=== PATIENT | female | born 1955 | race Caucasian/White ===

== ENCOUNTER → 2017-04-12 | Outpatient (CLI) | payer OTHER | LOC: BMCIMAGING 08:24 | PROVIDERS: ATTEND Internal Medicine | DX: Z12.31 Encounter for screening mammogram for malignant neoplasm of breast (principal) | CPT/HCPCS: G0202 ==

== ENCOUNTER 2017-07-20 08:32 | Emergency (ER) | payer OTHER ==
--- NOTE | 2017-07-20 09:19 | EDPHY ---
General Time Seen by Provider: 07/20/17 09:11 Narrative: CHIEF COMPLAINT: Flank pain,"possible kidney infection" HISTORY OF PRESENT ILLNESS: Patient complains of bilateral flank pain. Pain originally started . It is mild to moderate pain. It waxes and wanes. Typically much worse at night. Associated with some nausea vomiting. Was associated with chills and subjective fever. No fever today. The worst component of this is that she says she falls asleep at night but then awakes 2-3 hours later and cannot go back to sleep. It also radiates to the left shoulder. She has no chest pain. No shortness of breath. She does have urinary frequency but minimally changed from baseline. No dysuria. No microscopic hematuria. Blood sugars have also been elevated. They have been running in the 300s as high as 384. She does have an insulin pump. She contacted her primary care physician who sent her to urgent care. Urgent care center to ask for higher level of care per REVIEW OF SYSTEMS: Ten systems reviewed and are negative unless otherwise noted in the HPI PCP: Dr. Jessica Santo SPECIALISTS: Dr. Galan, endocrine PAST MEDICAL HISTORY: Insulin-dependent diabetic, osteoarthritis PAST SURGICAL HISTORY: Micro diskectomy 2016 SOCIAL HISTORY: Nonsmoker. No alcohol or drug use. Works in [employer] here in [place]. Lives independently with her spouse FAMILY HISTORY: Noncontributory EXAMINATION General Appearance: Alert, no distress Head: normocephalic, atraumatic Eyes: Pupils equal and round, no conjunctival pallor or injection ENT, Mouth: Mucous membranes moist Neck: Normal inspection, supple, non-tender Respiratory: Lungs are clear to auscultation. No wheezing, rhonchi or crackles Cardiovascular: Regular rate and rhythm. No murmur Gastrointestinal: Abdomen is soft and nontender. Nondistended. No tympany rigidity. No guarding. No CVA tenderness Back: non-tender, no bony abnormalities Neurological: A&O, nonfocal, normal gait Skin: Warm and dry, no rash. No petechiae or purpura Extremities: Nontender, no pedal edema Psychiatric: Mood and affect normal DIFFERENTIAL DIAGNOSES: Including but not limited to renal colic, pyelonephritis, urinary tract infection, dehydration, DKA, musculoskeletal pains MDM: 9:20 a.m. Bilateral flank pain with urinary frequency but no dysuria. Urinalysis shows mildly positive leukocyte esterase, 3-5 white blood cells and positive ketonuria. Vital signs were well within normal limits. She is in no acute distress. She does have mild CVA tenderness. Her abdominal exam is benign. She is afebrile here. She does report blood sugars that have been the 300s to 390 at home. She is an insulin-dependent diabetic. I have ordered laboratory studies, venous blood gas, beta hydroxybutyrate. I will discuss with Dr. Leyva regarding ultrasound of the kidneys versus CT scan. 10:10 a.m. Patient re-evaluated. Laboratory studies suggest mild urinary tract infection. Glucose is 240. No evidence of DKA by laboratory studies. I have discussed with Dr. Leyva. Proceeding with CT scan of the abdomen and pelvis to further evaluate for the flank pain. I have discussed with the patient she agrees. I have ordered IV Rocephin for the possibility of infection and IV fluid due to the IV contrast. 11:00 a.m. Patient resting comfortably. Awaiting CT scan. 11:35 a.m. Notified by radiologist Dr. Starkey. No acute findings on the CT scan of the abdomen pelvis that would explain the patient's pain. Mild changes as noted in the report. 11:50 a.m. I discussed case with Dr. Leyva. I have also re-evaluated the patient. We are in agreement that the patient likely has an early pyelonephritis. She remains awake alert no acute distress. Vital signs are stable. She has no complaints of lower extremity weakness or sensory changes. The moderate to significant spinal stenosis is not new for her. I did discuss the incidental note of diverticulosis. I do feel she is stable for discharge home with antibiotic therapy. I have ordered a urine culture. I discussed follow-up with primary care physician in 1-2 days. I discussed ED precautions. She is comfortable this plan and discharged home stable condition. SUPERVISION: Patient was independently examined, but I discussed the case with my secondary supervising physician Dr. Leyva - Diagnostics Imaging Results: Imaging Impressions Abdomen CT 07/20/17 10:04 Impression: 1. No significant abnormality within the abdomen and pelvis. 2. Uncomplicated diverticulosis of the sigmoid colon. 3. Degenerative disk disease with mild dextroscoliosis mid to lower lumbar spine with underlying neuroforaminal stenosis bilaterally and moderate to severe spinal stenosis at L5 dish S1. 4. Mild constipation. Findings discussed with Guillermo Ba PAC at 11:34 hour, 07/20/2017. - History Smoking Status: Former smoker - Objective Vital Signs: Initial Vital Signs Temperature (C) 96.8 F 07/20/17 08:33 Heart Rate 84 07/20/17 08:33 Respiratory Rate 18 07/20/17 08:33 Blood Pressure 136/96 H 07/20/17 08:33 O2 Sat (%) 96 07/20/17 08:33 O2 Delivery Mode Room Air Allergies/Adverse Reactions: cortisone [Cortisone] Allergy (Mild, Verified 07/20/17 08:33) BLISTERING, RED, SWELLING Home Medications: Medication Instructions Recorded Cephalexin [Keflex (*)] 500 mg PO QID #40 cap 07/20/17 Insulin Aspart [novoLOG] unit SC AC 07/20/17 oxyCODONE HCL/ACETAMINOPHEN 1 each PO Q4-6PRN PRN #13 tablet 07/20/17 [Percocet 5-325 mg Tablet] Laboratory Results: Laboratory Results 07/20/17 09:22 07/20/17 09:22 07/20/17 07/20/17 07/20/17 09:22 09:22 09:22 WBC 6.98 10^3/uL 10^3/uL (3.80-9.50) RBC 5.33 10^6/uL 10^6/uL (4.18-5.33) Hgb 16.3 g/dL g/dL (12.6-16.3) Hct 46.3 % % (38.0-47.0) MCV 86.9 fL fL (81.5-99.8) MCH 30.6 pg pg (27.9-34.1) MCHC 35.2 g/dL g/dL (32.4-36.7) RDW 12.0 % % (11.5-15.2) Plt Count 241 10^3/uL 10^3/uL (150-400) MPV 9.7 fL fL (8.7-11.7) Neut % (Auto) 63.0 % % (39.3-74.2) Lymph % (Auto) 20.9 % % (15.0-45.0) [place] % (Auto) 7.2 % % (4.5-13.0) Eos % (Auto) 7.7 % H % (0.6-7.6) Baso % (Auto) 1.1 % % (0.3-1.7) Nucleat RBC Rel Count 0.0 % % (0.0-0.2) Absolute Neuts (auto) 4.39 10^3/uL 10^3/uL (1.70-6.50) Absolute Lymphs (auto) 1.46 10^3/uL 10^3/uL (1.00-3.00) Absolute Monos (auto) 0.50 10^3/uL 10^3/uL (0.30-0.80) Absolute Eos (auto) 0.54 10^3/uL H 10^3/uL (0.03-0.40) Absolute Basos (auto) 0.08 10^3/uL 10^3/uL (0.02-0.10) Absolute Nucleated RBC 0.00 10^3/uL 10^3/uL (0-0.01) Immature Gran % 0.1 % % (0.0-1.1) Immature Gran # 0.01 10^3/uL 10^3/uL (0.00-0.10) Puncture Site VENOUS Patient Temperature 37.0 DEGREES DEGREES VBG pH 7.41 (7.31-7.42) VBG HCO3 27 mEQ/L H mEQ/L (22-26) VBG Total CO2 28 mEq/L H mEq/L (23-27) VBG O2 Saturation 70 % % (65-75) VBG Base Excess 2.2 mEq/L mEq/L (-2.5-2.5) Mixed VBG pCO2 44 mmHg mmHg (40-44) Mixed VBG pO2 39 mmHg mmHg (35-40) Sodium 140 mEq/L mEq/L (135-145) Potassium 4.2 mEq/L mEq/L (3.5-5.2) Chloride 101 mEq/L mEq/L (97-110) Carbon Dioxide 25 mEq/l mEq/l (22-31) Anion Gap 14 mEq/L mEq/L (8-16) BUN 16 mg/dL mg/dL (7-23) Creatinine 0.8 mg/dL mg/dL (0.6-1.0) Estimated GFR > 60 Glucose 240 mg/dL H mg/dL (70-100) Calcium 11.4 mg/dL H mg/dL (8.5-10.4) Phosphorus 2.7 mg/dL mg/dL (2.5-4.5) Lipase 47 IU/L IU/L (23-300) Beta-Hydroxybutyrate 0.09 mmol/L mmol/L (0.02-0.27) Urine Color Urine Appearance Urine pH Ur Specific [place] Urine Protein Urine Ketones Urine Blood Urine Nitrate Urine Bilirubin Urine Urobilinogen Ur Leukocyte Esterase Urine RBC Urine WBC Ur Epithelial Cells Urine Glucose 07/20/17 08:40 WBC RBC Hgb Hct MCV MCH MCHC RDW Plt Count MPV Neut % (Auto) Lymph % (Auto) [place] % (Auto) Eos % (Auto) Baso % (Auto) Nucleat RBC Rel Count Absolute Neuts (auto) Absolute Lymphs (auto) Absolute Monos (auto) Absolute Eos (auto) Absolute Basos (auto) Absolute Nucleated RBC Immature Gran % Immature Gran # Puncture Site Patient Temperature VBG pH VBG HCO3 VBG Total CO2 VBG O2 Saturation VBG Base Excess Mixed VBG pCO2 Mixed VBG pO2 Sodium Potassium Chloride Carbon Dioxide Anion Gap BUN Creatinine Estimated GFR Glucose Calcium Phosphorus Lipase Beta-Hydroxybutyrate Urine Color YELLOW Urine Appearance HAZY Urine pH 5.0 (5.0-7.5) Ur Specific [place] 1.021 (1.002-1.030) Urine Protein NEGATIVE (NEGATIVE) Urine Ketones NEGATIVE (NEGATIVE) Urine Blood NEGATIVE (NEGATIVE) Urine Nitrate NEGATIVE (NEGATIVE) Urine Bilirubin NEGATIVE (NEGATIVE) Urine Urobilinogen NEGATIVE EU EU (0.2-1.0) Ur Leukocyte Esterase TRACE H (NEGATIVE) Urine RBC 1-3 /hpf /hpf (0-3) Urine WBC 3-5 /hpf H /hpf (0-3) Ur Epithelial Cells TRACE /lpf /lpf (NONE-1+) Urine Glucose 3+ H (NEGATIVE) Medications Given: Discontinued Medications Ceftriaxone Sodium/Dextrose (Rocephin 1 Gm (Premix)) 50 mls @ 100 mls/hr IV EDNOW ONE PRN Reason: Protocol Stop: 07/20/17 10:39 Last Admin: 07/20/17 10:48 Dose: 50 mls Sodium Chloride (Ns) 1,000 mls @ 0 mls/hr IV EDNOW ONE; Wide Open PRN Reason: Protocol Stop: 07/20/17 10:12 Last Admin: 07/20/17 10:47 Dose: 1,000 mls Departure - Departure Disposition: Home, Routine, Self-Care Clinical Impression: Pyelonephritis, Flank pain Diverticulosis Qualifiers: Diverticulosis site: unspecified location Diverticulosis bleeding: diverticulosis without bleeding Qualified Code(s): K57.90 - Diverticulosis of intestine, part unspecified, without perforation or abscess without bleeding Condition: Good Instructions: Urinary Tract Infection in Women (ED), Kidney Infection (ED), Flank Pain (ED) Additional Instructions: 1. Antibiotics as prescribed to completion 2. Contact her primary care physician to be seen 1-2 days 3. Pain medication as prescribed as needed 4. ED precautions as discussed Referrals: Jessica Santo MD [Primary Care Provider] - As per Instructions Prescriptions: Cephalexin [Keflex (*)] 500 mg PO QID #40 cap oxyCODONE HCL/ACETAMINOPHEN [Percocet 5-325 mg Tablet] 1 each PO Q4-6PRN PRN # 13 tablet PRN Reason: Pain, Breakthrough
[2017-07-20 09:59] LABS: PLATELET COUNT 241 10^3/uL (150-400)
[2017-07-20] MEDS ORDERED: IOPAMIDOL (ISOVUE-300) 100 ML BTL ONE (10:09)
[2017-07-20] MEDS ORDERED: NS 1,000 ML IV ONE (10:11)
--- NOTE | 2017-07-20 11:51 | CPEKG ---
Heart Rate: 69 RR Interval: 870 P-R Interval: 148 QRSD Interval: 82 QT Interval: 376 QTC Interval: 403 P Tillman: 83 QRS Tillman: 38 T Wave Tillman: 39 EKG Severity - NORMAL ECG - EKG Impression: SINUS RHYTHM Electronically Signed By: Ulysses Leyva 20-Jul-2017 14:58:58
[2017-07-20 12:20] VITALS: BP 144/93; PULSE 74; RESP 16; TEMP 98.1; O2SAT 98
== END 2017-07-20 12:18 | disposition home or self-care (01) ==
DX: K57.90 Diverticulosis of intestine, part unspecified, without perforation or abscess without bleeding (principal); N12 Tubulo-interstitial nephritis, not specified as acute or chronic; E86.9 Volume depletion, unspecified; E11.9 Type 2 diabetes mellitus without complications; Z87.891 Personal history of nicotine dependence
CPT/HCPCS: 96374; J0696; Q9967

== ENCOUNTER → 2017-08-09 | Outpatient (CLI) | payer OTHER | LOC: FIMAGING 10:15 | PROVIDERS: ATTEND Internal Medicine Endocrinology, Diabetes & Metabolism | DX: Z13.820 Encounter for screening for osteoporosis (principal); M85.89 Other specified disorders of bone density and structure, multiple sites; Z78.0 Asymptomatic menopausal state ==

== ENCOUNTER 2018-02-20 08:34 | Inpatient (IN) | payer OTHER ==
--- NOTE | 2018-02-20 08:49 | EDPHY ---
HPI/HX/ROS/PE/MDM Narrative: CHIEF COMPLAINT: Abscess HISTORY OF PRESENT ILLNESS: This patient is a 62-year-old female with history of insulin dependent diabetes. She has had an insulin pump in place for the past four years and has had an adverse skin reaction to plastic cannulas in the past, so switched to metal about one month ago. She has had small abscesses which have not required antibiotic treatment. On Tuesday, two days ago, she noted her BGL was high, around 600. She noted some erythema around her pump side to the left of her umbilicus, and moved the site to the right. She denies noting any purulence when she removed the needle. This morning, she noted a larger area of erythema with a central area of induration. She feels febrile and endorses chills and diaphoresis. She endorses associated nausea. She states her blood glucose levels have been normal since changing her pump site. She denies history of hypertension, pulmonary issues, cardiac issues. No chest pain, shortness of breath, palpitations, vomiting, diarrhea, urinary complaints, headache, lightheadedness. REVIEW OF SYSTEMS: A comprehensive 10 system review of systems is otherwise negative aside from elements mentioned in the history of present illness and medical decision making. PAST MEDICAL HISTORY: Insulin-dependent diabetes (diagnosed in 2010 following an episode of DKA). History of ectopic , hysterectomy, endometriosis. SOCIAL HISTORY: Occasional alcohol and marijuana use. Nonsmoker. No illicit drug use. . at bedside. Employed. PCP Dr. Santo. VITAL SIGNS: Reviewed by me GENERAL: Well-developed, well-nourished, resting comfortably in no respiratory distress. HEENT: Atraumatic. Eyes: No icterus, no injection. Mouth: moist mucous membranes. No erythema or lesions. Neck: supple with no adenopathy. LUNGS: Clear to auscultation bilaterally, no wheezes, rhonchi or rales. CARDIAC: Regular rate and rhythm, no rubs, murmurs or gallops. ABDOMEN: 10x8cm walker river of erythema to the left of the patient's umbilicus with a 3cm circular area of induration at the center, warm to touch. Soft, nontender , nondistended, bowel sounds normal. BACK: No CVA tenderness. EXTREMITIES: No trauma. No edema. Range of motion is normal throughout. NEURO: Alert and oriented, grossly nonfocal. SKIN: Clammy. Warm, no rash. PSYCHIATRIC: Normal mentation, no agitation. Portions of this note were transcribed by a medical scheduler. I personally performed a history, physical exam, medical decision making, and confirmed accuracy of information the transcribed note. ED Course: 62-year-old female with history of IDDM presents with concern for abscess to her insulin pump site in her abdomen. Exam reveals a 10x8cm walker river of erythema to the left of the patient's umbilicus with a 3cm circular area of induration at the center, warm to touch. Patient's temperature is 36.8 here in the emergency department, but she has felt febrile and her skin is somewhat clammy. Plan for sepsis evaluation. Plan for chest x-ray, labs including CBC, chemistries, UA, lactic acid, blood cultures. Plan to administer 1L IV NS. Lactic acid 1.9. WBC is not elevated at this time. BGL elevated at 296. Patient ate about 1.5 hours ago, she will self-administer 10 units insulin per her pump. UA shows 3+ glucose in urine. Chest x-ray negative for acute processes. 9:50 Procedure: Incision and Drainage abscess. The patient's abscess was located on the left abdominal wall. Risks, benefits, alternatives discussed with the patient and consent obtained. The area was prepped and draped in sterile fashion. The patient received local anesthesia with 1% lidocaine with epinephrine. The abscess was incised with a #15 blade and purulent drainage was expressed. The wound was irrigated and packed. The patient tolerated the procedure well. The procedure was performed by myself. Plan to admit patient. Plan to administer 1gm IV Vancomycin. 10:[address] Aquino, hospitalist. He accepts admission for abdominal wall abscess, IDDM. MDM: Diff dx considered included MRSA, MSSA, strep infection, deep space infection, necrotizing fascitis, sepsis, DKA, hyperglycemia related to infection. - Data Points Imaging: I viewed and interpreted images myself Laboratory Results: Laboratory Results 02/20/18 08:55 02/20/18 08:55 Medications Given: Acetaminophen (Tylenol) 650 mg PO Q4HRS PRN PRN Reason: Pain, Mild/Fever, Can Take PO Stop: 08/19/18 12:08 Last Admin: 02/21/18 17:52 Dose: 650 mg Cholecalciferol (Vitamin D) 1,000 units PO DAILY MARY Stop: 08/20/18 08:59 Last Admin: 02/21/18 09:59 Dose: 1,000 units Ceftriaxone Sodium 2 gm/ (Sodium Chloride) 50 mls @ 100 mls/hr IV DAILY MARY PRN Reason: Protocol Stop: 03/23/18 15:59 Last Admin: 02/21/18 16:05 Dose: 50 mls Insulin Human Lispro (Humalog Lispro) 0 unit SC TIDMEAL MARY PRN Reason: Protocol Stop: 08/19/18 17:59 Last Admin: 02/21/18 17:29 Dose: Not Given Multivitamins/Minerals (Thera M Plus Tablet) 1 each PO DAILY MARY Stop: 08/20/18 08:59 Last Admin: 02/21/18 09:59 Dose: 1 each Discontinued Medications Sodium Chloride (Ns) 1,000 mls @ 0 mls/hr IV ONCE ONE PRN Reason: Wide Open Stop: 02/20/18 09:37 Last Admin: 02/20/18 09:36 Dose: 1,000 mls Vancomycin/Sodium Chloride (Vancomycin 1 Gm (Premix)) 250 mls @ 250 mls/hr IV EDNOW ONE PRN Reason: Protocol Stop: 02/20/18 11:10 Last Admin: 02/20/18 10:47 Dose: 250 mls Vancomycin HCl 1.25 gm/ (Dextrose) 250 mls @ 166.667 mls/hr IV Q12H MARY Stop: 03/22/18 21:59 Last Admin: 02/21/18 10:44 Dose: 250 mls Point of Care Test Results: Chemistry 02/20/18 09:05 POC Sodium 137 mEq/L mEq/L (135-145) POC Potassium 3.6 mEq/L mEq/L (3.3-5.0) POC Chloride 102 mEq/L mEq/L (97-110) POC BUN 11 mg/dL mg/dL (7-23) POC Creatinine 0.7 mg/dL mg/dL (0.6-1.0) POC Glucose 303 mg/dL H mg/dL (70-100) ISTAT H&H 02/20/18 09:05 POC Hgb 16.0 gm/dL gm/dL (12.6-16.3) POC Hct 47 % % (38-47) Microbiology Results: MICROBIOLOGY 02/20/18 10:00 Hand - Swab Gram Stain - Final 02/20/18 10:00 Hand - Swab Wound Culture - Preliminary Streptococcus Intermedius 02/20/18 08:55 Urine,Clean Catch Urine Culture - Preliminary Staphylococcus Aureus [place] Types General Time Seen by Provider: 02/20/18 08:45 Initial Vital Signs: Initial Vital Signs Temperature (C) 36.8 C 02/20/18 08:38 Heart Rate 82 02/20/18 08:38 Respiratory Rate 18 02/20/18 08:38 Blood Pressure 177/90 H 02/20/18 08:38 O2 Sat (%) 98 02/20/18 08:38 O2 Delivery Mode Room Air Allergies/Adverse Reactions: cortisone [Cortisone] Allergy (Mild, Verified 02/20/18 08:42) BLISTERING, RED, SWELLING Home Medications: Medication Instructions Recorded Cholecalciferol Vit D3 [Vitamin D3 1,000 units PO DAILY 02/20/18 (*)] Herbals/Supplements -Info Only 1 ea PO DAILY 02/20/18 Insulin Pump, Patient Own 1 ea MISC AD 02/20/18 Multivitamins W-Minerals [Thera M 1 each PO DAILY 02/20/18 Plus Tablet (*)] Departure - Departure Disposition: [facility] Clinical Impression: Abdominal wall abscess, IDDM (insulin dependent diabetes mellitus) Condition: Fair Report Scribed for: Piper Koroma Report Scribed by: Tasha Robles Date of Report: 02/20/18 Time of Report: 10:10
[2018-02-20 09:24] LABS: PLATELET COUNT 301 10^3/uL (150-400)
[2018-02-20] MEDS ORDERED: NS 1,000 ML IV ONE (09:36)
[2018-02-20 10:10] LABS: INR 0.93 (0.83-1.16); PROTIME(PATIENT) 12.7 SEC (12.0-15.0)
[2018-02-20] MEDS ORDERED: VANCOMYCIN HCL/NORMAL SALINE 250 ML IV ONE (10:11)
[2018-02-20] MEDS ORDERED: LORazepam 0.5 MG TAB PO PRN (12:09)
[2018-02-20] MEDS ORDERED: HYDROmorphONE/DILAUDID 1 MG/ML INJ IVP PRN (12:09)
[2018-02-20] MEDS ORDERED: ONDANSETRON 4 MG/2 ML VIAL IVP PRN (12:09)
[2018-02-20] MEDS ORDERED: oxyCODONE IR 5 MG TAB PO PRN (12:09)
[2018-02-20] MEDS ORDERED: ONDANSETRON DISINTEGRATING 4 MG TAB PO PRN (12:09)
[2018-02-20] MEDS ORDERED: PROMETHAZINE HCL 25 MG/ML INJ IVP PRN (12:09)
[2018-02-20] MEDS ORDERED: HYDROCODONE/APAP 5/325 TAB PO PRN (12:09)
[2018-02-20] MEDS ORDERED: D50W 25 GM/50 ML SYR IVP PRN ×2 (12:09→12:36)
[2018-02-20] MEDS ORDERED: NON-FORMULARY NEW DRUG (Insulin Pump, Patient Own 1 EA) MISC SCH (12:15)
[2018-02-20] MEDS ORDERED: INSULIN PUMP, PATIENT OWN 1 EA MISC SCH (12:45)
[2018-02-20] MEDS: ACETAMINOPHEN 325 MG TAB PO PRN (16:15)
[2018-02-20] MEDS ORDERED: hydrALAZINE 20 MG/ML VIAL IVP PRN (16:20)
--- NOTE | 2018-02-20 17:02 | GHP ---
DATE OF ADMISSION: 02/20/2018 CHIEF COMPLAINT: Redness around site of insulin pump. HISTORY: This is a 62-year-old female with past medical history of insulin-dependent diabetes using an insulin pump at home presents with complaints of redness and erythema around the site of the inser tion of her pump. The patient notes that she uses a 10 mm long metal needle to insert her pump and t hat as soon as she inserted it several days ago, she had immediate pain but decided to ignore it and left the pump in place. Pain continued and over the next several days, she developed significant red ness and swelling. She did have subjective fevers and chills. She does not have any swollen lymph n odes or streaking redness that she has appreciated. She was seen in the emergency department, and in cision and drainage of the abscess was performed. She was started on vancomycin. She notes the redn ess does seem to be slightly improved, although it is spreading past the lines that were marked in [facility] emergency department. She has no other complaints at this time. PAST MEDICAL HISTORY: Includes: 1. Insulin-dependent diabetes. 2. Depression. 3. Migraine. 4. Prior cellulitis. PAST SURGICAL HISTORY: Includes: 1. L4-L5 microdiskectomy. 2. Ectopic surgery. 3. Hysterectomy. 4. Tonsillectomy. FAMILY HISTORY: Father with type 2 diabetes. Maternal grandmother with rheumatoid arthritis. SOCIAL HISTORY: Patient is . She is a nonsmoker, nondrinker. MEDICATIONS: Include: 1. Cholecalciferol. 2. Multivitamin. 3. Insulin pump. ALLERGIES: Include cortisone. PHYSICAL EXAM: VITAL SIGNS: BP 169/97, heart rate 72, respiratory rate 16, O2 sats 98% on room air, temperature is 36.6. GENERAL APPEARANCE: This is a well-developed/well nourished female. She is a wake and alert. She is in no acute distress. EYES: Anicteric. HENT: Oropharynx clear. CARDIOVAS CULAR: Regular rate and rhythm, no MRG. PULMONARY: CTA bilaterally. Normal work of breathing. AB DOMEN: Soft, nontender. In the left lower quadrant, there is an approximately 8 cm area of erythema . There is a wound that has been packed and drained in the emergency department. EXTREMITIES: No c lubbing, cyanosis, or edema. SKIN: Warm, dry, well perfused. NEURO/PSYCH: Oriented, appropriate, pleasant. CLINICAL DATA: Labs reviewed and notable for a white blood cell count of 9.1. Chemistry notable onl y for a glucose of 303. Chest x-ray personally reviewed and interpreted shows a normal chest x-ray. ASSESSMENT AND PLAN: This is a 62-year-old female with a past medical history of insulin-dependent d iabetes presenting with abdominal cellulitis. 1. Abdominal cellulitis: This is in the setting of insulin pump use. She does note that she uses a fairly large needle at 10 mm. She states when she inserted the needle, there was pain and immediate ly thereafter some redness that then progressed to an abscess and significantly increased redness. S he is now status post incision and drainage and packing in the emergency Department, started on vanco mycin with improvement of her symptoms. Cultures are pending from the wound. We will continue vanco mycin for the time being. Query if she could have hit a blood vessel or some other reason that she h ad immediate pain on insertion of her needle. I did discuss with her possibility of using smaller ne edles in the future. We will ask Infectious Disease to see in the morning. 2. Insulin-dependent diabetes with a hemoglobin A1c of 7.6. She does have suboptimal control even w ith her pump. We will continue her insulin pump with the addition of sliding scale for now. 3. Uncontrolled hypertension: Blood pressure has been high since admission. She is not on antihype rtensives at home. This may simply be due to her acute infection and pain but will need to monitor. p.r.n. hydralazine for the time being. 4. Observation status: Patient will require less than 48-hour stay for evaluation and management of above. 5. Patient is new to my care. Old records reviewed, summarized as per HPI and past medical history. Care plan reviewed with the emergency room physician as per above. /[id number]/MODL
[2018-02-20] MEDS: INSULIN LISPRO 100 UNIT/ML SC SCH (18:23)
[2018-02-20] MEDS: VANCOMYCIN 1.25 GM in D5W 250 ML IV SCH (21:45)
[2018-02-21 04:56] LABS: PLATELET COUNT 250 10^3/uL (150-400)
[2018-02-21] MEDS: INSULIN LISPRO 100 UNIT/ML SC SCH ×3 (09:59→17:29)
[2018-02-21] MEDS: MULTIVITAMINS W-MINERALS 1 EACH TAB PO SCH (09:59)
[2018-02-21] MEDS: CHOLECALCIFEROL VIT D3 1,000 UNITS TAB PO SCH (09:59)
--- NOTE | 2018-02-21 10:13 | HOSPPROG ---
Hospitalist Progress Note Assessment/Plan: Trang Lopez is a 62-year-old female with a past medical history of insulin- dependent diabetes presenting with abdominal cellulitis.Today is my first encounter w the patient, chart reviewed. Discussed her care with Dr Mendez. *Abdominal wall abscess w abdominal cellulitis: This is in the setting of insulin pump use. She uses a fairly large needle at 10 mm. -on vancomycin -if doesn't improve, will ask surgery to evaluate * Insulin-dependent diabetes with a hemoglobin A1c of 7.6. She does have suboptimal control even with her pump. -continue her insulin pump with the addition of sliding scale for now. *Uncontrolled hypertension: Blood pressure has been high since admission. -prn hydralazine -will discuss with her about treatment *dvt prophylaxis: she has been ambulating in the hallways, could consider if she stays much longer Subjective: Trang said she is feeling much better today. Objective: Vital Signs Temp Pulse Resp BP Pulse Ox 36.7 C 80 16 118/72 95 02/21/18 08:00 02/21/18 08:00 02/21/18 08:00 02/21/18 08:00 02/21/18 08:00 Laboratory Results 02/21/18 04:42 02/21/18 04:42 02/20/18 02/21/18 02/22/18 05:59 05:59 05:59 Intake Total 4430 Balance 4430 PT 12.7 SEC (12.0-15.0) 02/20/18 09:52 INR 0.93 (0.83-1.16) 02/20/18 09:52 - Physical Exam Constitutional: no apparent distress, appears nourished Eyes: PERRL Ears, Nose, Mouth, Throat: hearing normal Cardiovascular: regular rate and rhythym Respiratory: no respiratory distress Gastrointestinal: normoactive bowel sounds Skin: warm, other (large reddened area on the left side of her abdomen, has a small opening without any purulent drainaged, skin is warm to the touch. The redness slightly extends pass the marked edges) Musculoskeletal: full muscle strength Neurologic: AAOx3 Psychiatric: interacting appropriately, not anxious ICD10 Worksheet Patient Problems: Problems Problem Status Onset Abdominal wall abscess Acute IDDM (insulin dependent diabetes mellitus) Acute
--- NOTE | 2018-02-21 10:36 | GCON ---
INFECTIOUS DISEASES CONSULTATION DATE OF CONSULTATION: 02/21/2018 REFERRING PHYSICIAN: Soren Pinzon MD REASON FOR CONSULTATION: Abdominal wall abscess. HISTORY OF PRESENT ILLNESS: The patient is a 62-year-old female with a past medical history of insul in-dependent diabetes, whom I am asked to see in consultation for a left-sided abdominal wall abscess associated with prior insulin pump use. The patient describes recently changing to 10 mm metal need les for her insulin pump and recently inserted one in her left lower abdominal wall and noted this wa s more painful than typical. She continued to use her insulin pump in this location, but subsequentl y on Tuesday, developed an area of erythema around the margin. Subsequently, she changed her needle to a different site. The area of erythema subsequently became larger, with associated tenderness. Patient describes having chills but no rigors. She notes her temperature was in the 99-degree range. She notes that she often gets some skin irritation locally with use of her insulin pump. She has n ot had prior need for incision and drainage, antibiotic therapy, or hospitalization for abscess forma tion. No prior history of MRSA skin and soft tissue infection. The patient presented to the emergen cy department for further evaluation and was noted to have an abscess with cellulitis over the left-s ided abdominal wall. She underwent incision and drainage in the emergency department with Gram stain showing 4+ white blood cells and 4+ gram-positive cocci with cultures currently pending. Blood cult ures are also pending. The patient has been started empirically on vancomycin and notes that the abs cess is less tender. Some erythema has spread outside the demarcated lines. Given the above finding s, I am now asked to assist in her ongoing management. PAST MEDICAL HISTORY: Insulin-dependent diabetes mellitus with onset as an adult, hyperparathyroidis m. PAST SURGICAL HISTORY: L4-5 microdiskectomy, ectopic , hysterectomy. CURRENT MEDICATIONS: Vancomycin 1.25 g IV q.12 hours, vitamin D 1000 units orally daily, hydralazine as needed, Dilaudid as needed, [place] as needed, insulin pump, multivitamin p.o. daily. ALLERGIES: Topical cortisone. SOCIAL HISTORY: Patient is a former smoker. She drinks 2 glasses of wine per day. She uses marijua na. There are pet dogs and cats at home. She also owns horses, which she does visit [place] a local [place] . She traveled to [place] 2 weeks ago. FAMILY HISTORY: Father with alcoholism, mother with cardiac arrhythmia. REVIEW OF SYSTEMS: Outside that noted in the HPI, the remainder of 10-system review is unremarkable. PHYSICAL EXAMINATION: VITAL SIGNS: Temperature 36.7, heart rate 80, respiratory rate 16, blood pres sure 118/72, oxygen saturation 95% on room air. GENERAL: Patient is well nourished, well developed, in no acute distress. She appears nontoxic. HEENT: There is no scleral icterus, conjunctival inje ction, or conjunctival petechiae. The oropharynx shows moist mucous membranes, with no thrush. Ther e is no sinus tenderness. No nasal discharge or pustulosis. NECK: Supple, without lymphadenopathy or thyromegaly. CHEST: Clear to auscultation bilaterally, without adventitious sounds. The respira tory effort is normal. CARDIOVASCULAR: Regular rate and rhythm, without murmurs, gallops, or rubs. ABDOMEN: There is approximately 20 cm of erythema over the lower abdominal wall on the left, with a central incision site. Packing is removed, with no residual purulence expressed. Induration extends for approximately 60-70 percent of the area of erythema, which has spread slightly beyond the demarc ated lines medially. No residual fluctuance present. Mild tenderness and warmth present. MUSCULOSK ELETAL: No cyanosis, clubbing, or edema. SKIN: See abdominal exam. No stigmata of endocarditis. Several tattoos are present. Skin is warm and dry to touch. NEUROLOGIC: The patient is alert and i nteracts appropriately with examiner. Cranial nerves 2-12 are grossly intact. Sensation is grossly intact. Muscle tone and bulk are normal. LYMPHATICS: No cervical or supraclavicular nodes palpable . LABORATORY DATA: White blood cell count 9.5, hematocrit 41.0, platelets 250, neutrophils 76%. Serum creatinine 0.6, glucose 246, calcium 10.0. Urinalysis shows 1-3 white blood cells with 3+ glucose. Blood cultures x2 are pending. Gram stain of the abdominal abscess as outlined previously with cult ure pending. IMPRESSION: Abdominal wall abscess with concomitant cellulitis associated with insulin pump use: Gr am stain shows 4+ GPC. Most likely, this will be due to Staphylococcus aureus or beta-hemolytic stre ptococci with community-acquired methicillin-resistant Staphylococcus aureus consideration. Given he r contact with horses, group C or G strep would also be of consideration. Currently, there are resid ual phlegmonous changes, but no focal purulent drainage or fluctuance. Think can observe with ongoin g antibiotic therapy for the next 24 hours, and if no further improvement, may require additional inc ision and drainage. RECOMMENDATIONS: 1. Agree with vancomycin 1.25 g IV q.12 hours. 2. Await cultures and modification of antibiotics accordingly. 3. Follow clinical response to above measures. 4. If fails to improve with further antibiotic therapy, will obtain surgical consultation for possib le extension of incision and drainage. 5. Thank you for this consultation. We will continue to follow the patient with you. /[id number]/MODL
[2018-02-21] MEDS: VANCOMYCIN 1.25 GM in D5W 250 ML IV SCH (10:44)
--- NOTE | 2018-02-21 11:27 | ASMTCASEMG ---
Living Arrangements What is your living Answers: With Spouse arrangement? Who do you live with? Type Of Residence What kind of residence do Answers: House you live in? Discharge Plan Comments Coordination Status Comments Notes: Pt is a 62 y/o female admitted for redness around site of insulin pump. Pt has a hx of diabetes, depression, migraine and prior cellulitis. ID is consulting on this case. Needs are TBD at this time. CM to follow. Plan: TBD Date Signed: 02/21/2018 11:25 AM Electronically Signed By:MARIE Blair
--- NOTE | 2018-02-21 11:43 | PDMN ---
Medical Necessity Medical necessity: [facility] [place] M70 Cellulitis:62 yo w/ abd wall abscess and cellulitis and pain in setting of insulin pump use, ID consulted who confirmed abscess shows 4+ GPC, most likely due to staph or beta hemolytic strep w/ community acquired methicillin resistant staph consideration, also consider C or G strep. IV vanco started and will cont for at least 48 hrs, if no improvement surg consult for possible I&D, blood cx pending. Pt is hypertensive 170s/90s, elevated HbA1c. Hx IDDM.
[2018-02-21] MEDS: ACETAMINOPHEN 325 MG TAB PO PRN (17:52)
[2018-02-22] MEDS: INSULIN LISPRO 100 UNIT/ML SC SCH ×3 (08:17→18:41)
[2018-02-22] MEDS: MULTIVITAMINS W-MINERALS 1 EACH TAB PO SCH (09:40)
[2018-02-22] MEDS: CHOLECALCIFEROL VIT D3 1,000 UNITS TAB PO SCH (09:40)
--- NOTE | 2018-02-22 10:42 | HOSPPROG ---
Hospitalist Progress Note Assessment/Plan: Trang Lopez is a 62-year-old female with a past medical history of insulin- dependent diabetes presenting with abdominal cellulitis. I evaluated the patient with Dr Rosales and discussed her care. *Abdominal wall abscess w abdominal cellulitis: This is in the setting of insulin pump use. She uses a fairly large needle at 10 mm. -abx changed to Ceftriaxone -gram stain show strep intermedius -less red today but cellulitis is extending towards the right side of abdomen -will get an ultrasound to evaluate for a fluid collection * Insulin-dependent diabetes with a hemoglobin A1c of 7.6. She has suboptimal control even with her pump. -continue her insulin pump with the addition of sliding scale for now -had a low glucose this morning and then high readings, she said this is her baseline when she gets an infection *Uncontrolled hypertension: Blood pressure has been high since admission. -prn hydralazine -Trang does not want treatment, she feels her bp is high from being in the hospital, she will f/u w Dr Santo her PCP *dvt prophylaxis: she has been ambulating in the hallways, could consider if she stays much longer *plan: get an ultrasound today, further f/u with this. Subjective: Trang is feeling fine today, understands she needs to be monitored in the hospital for the cellulitis. Objective: Vital Signs Temp Pulse Resp BP Pulse Ox 36.9 C 88 16 161/109 H 97 02/22/18 08:00 02/22/18 08:00 02/22/18 08:00 02/22/18 08:00 02/22/18 04:00 Laboratory Results 02/21/18 04:42 02/21/18 04:42 02/21/18 02/22/18 02/23/18 05:59 05:59 05:59 Intake Total 4430 1800 Output Total 1600 Balance 4430 200 PT 12.7 SEC (12.0-15.0) 02/20/18 09:52 INR 0.93 (0.83-1.16) 02/20/18 09:52 - Physical Exam Constitutional: no apparent distress, appears nourished, not in pain Eyes: PERRL Ears, Nose, Mouth, Throat: hearing normal Cardiovascular: regular rate and rhythym Respiratory: no respiratory distress Gastrointestinal: normoactive bowel sounds Skin: warm, other (left abd area of her abdomen has redness, this has decreased in size on the left but has extended to the right side of her abdomen. Less red , less warm today. Has a hardened area where the cellulits is.) Musculoskeletal: full muscle strength Neurologic: AAOx3 Psychiatric: interacting appropriately ICD10 Worksheet Patient Problems: Problems Problem Status Onset Abdominal wall abscess Acute IDDM (insulin dependent diabetes mellitus) Acute
--- NOTE | 2018-02-22 11:38 | PCMIDPN ---
Assessment/Plan: # Abdominal wall cellulitis and abscess associated with insulin pump. Cx w Streptococcus intermedius. This is my first exam but other providers report decreased intensity, distribution not improved yet --continue ceftriaxone --US to r/o additional abscess --if continues to improve could evaluate outpatient IV abx vs PO transition tomorrow # DM: HgAIC 7.6 Meds ceftriaxone 2gm IV daily#2 micro 02/20 wound cx s. intermedius 02/20 blood cx (2) : NGTD Subjective: feeling much better, much less pain denies side effect of antibiotics patient wants discharge as soon as possible Objective: Vital Signs Temp Pulse Resp BP Pulse Ox 36.9 C 88 16 161/109 H 97 02/22/18 08:00 02/22/18 08:00 02/22/18 08:00 02/22/18 08:00 02/22/18 04:00 Laboratory Results 02/21/18 04:42 02/21/18 04:42 02/21/18 02/22/18 02/23/18 05:59 05:59 05:59 Intake Total 4430 1800 Output Total 1600 Balance 4430 200 - Physical Exam General Appearance: alert, no apparent distress EENT: No scleral icterus, No pale conjunctiva Respiratory: lungs clear, No accessory muscle use Cardiac/Chest: regular rate, rhythm Abdomen: normal bowel sounds, non-tender, soft, other (L sided lower abdominal wall moderate erythema, no purulence from I&D site; induration in more medial area of erythema, below umbilicus), No rebound Skin: No diaphoresis, No pallor, No rash Neuro/Psych: alert, normal mood/affect, oriented x 3 - Time Spent With Patient Time Spent with Patient: greater than 35 minutes (care coordinated with hospitalists) Time Spent with Patient: Greater than 35 minutes spent on this patients care, greater than 50% of time spent counseling, educating, and coordinating care regarding the above mentioned plan. ICD10 Worksheet Patient Problems: Problems Problem Status Onset Abdominal wall abscess Acute IDDM (insulin dependent diabetes mellitus) Acute
[2018-02-23 07:37] VITALS: BP 147/78
[2018-02-23] MEDS: CHOLECALCIFEROL VIT D3 1,000 UNITS TAB PO SCH (08:25)
[2018-02-23] MEDS: MULTIVITAMINS W-MINERALS 1 EACH TAB PO SCH (08:25)
[2018-02-23] MEDS: INSULIN LISPRO 100 UNIT/ML SC SCH (08:55)
--- NOTE | 2018-02-23 09:29 | PCMIDPN ---
Assessment/Plan: Assessment/Plan: * Abdominal wall abscess due to Streptococcus intermedius status post incision and drainage: Clinically improved with some residual cellulitis present medially (may have some skin change from ecchymosis as well). Will plan for continued IV ceftriaxone through 02/26/2018 with follow-up in my office on 2017 to see if can transition to oral therapy or discontinue therapy at that point in time. Side effects of ceftriaxone including allergic reactions, skin rash, and drug fever discussed with patient today. * Urine culture with low colony counts of MRSA: No symptoms of urinary tract infection. Likely represents skin colonization. No directed therapy necessary. Epidemiology of MRSA discussed with patient today. 02/23/18 09:23 02/23/18 09:34 Subjective: Patient feels significantly improved with less abdominal wall pain. No urinary tract symptoms. Objective: Vital Signs Temp Pulse Resp BP Pulse Ox 36.8 C 89 18 147/78 H 94 02/23/18 07:33 02/23/18 07:33 02/23/18 07:33 02/23/18 07:33 02/23/18 07:33 Laboratory Results 02/21/18 04:42 02/21/18 04:42 02/22/18 02/23/18 02/24/18 05:59 05:59 05:59 Intake Total 1800 Output Total 1600 Balance 200 Ceftriaxone #3 Abscess cultures with growth of Streptococcus intermedius Urine culture with 2000 colony-forming units of MRSA and several other colony types - Physical Exam General Appearance: alert, no apparent distress EENT: No scleral icterus, No thrush Abdomen: non-tender, other (No purulence from abscess cavity; residual induration for several cm around incision site; erythema significantly reduced with persistent erythema with some more ecchymotic appearance medially, tenderness markedly decreased), No distended ICD10 Worksheet Patient Problems: Problems Problem Status Onset Abdominal wall abscess Acute IDDM (insulin dependent diabetes mellitus) Acute
--- NOTE | 2018-02-23 10:30 | HOSPPROG ---
Hospitalist Progress Note Assessment/Plan: Trang Lopez is a 62-year-old female with a past medical history of insulin- dependent diabetes presenting with abdominal cellulitis. *Abdominal wall abscess w abdominal cellulitis: This is in the setting of insulin pump use. She uses a fairly large needle at 10 mm. -abx changed to Ceftriaxone -gram stain show strep intermedius -much improved * Insulin-dependent diabetes with a hemoglobin A1c of 7.6. She has suboptimal control even with her pump. -continue her insulin pump *Uncontrolled hypertension: Blood pressure has been high since admission. -prn hydralazine -f/u with Dr Santo *plan: dc home w f/u with Dr Mendez Subjective: Trang is feeling fine, ready to go home. Objective: Vital Signs Temp Pulse Resp BP Pulse Ox 36.8 C 89 18 147/78 H 94 02/23/18 07:33 02/23/18 07:33 02/23/18 07:33 02/23/18 07:33 02/23/18 07:33 Laboratory Results 02/21/18 04:42 02/21/18 04:42 02/22/18 02/23/18 02/24/18 05:59 05:59 05:59 Intake Total 1800 Output Total 1600 Balance 200 PT 12.7 SEC (12.0-15.0) 02/20/18 09:52 INR 0.93 (0.83-1.16) 02/20/18 09:52 - Physical Exam Constitutional: no apparent distress, appears nourished, not in pain Eyes: PERRL Ears, Nose, Mouth, Throat: hearing normal Respiratory: no respiratory distress Skin: warm, other (abdominal cellulitis is much improved, slightly firm in the center of her abdomen) Musculoskeletal: full muscle strength Neurologic: AAOx3 Psychiatric: interacting appropriately ICD10 Worksheet Patient Problems: Problems Problem Status Onset Abdominal wall abscess Acute IDDM (insulin dependent diabetes mellitus) Acute
--- NOTE | 2018-02-23 11:26 | ASMTLACE ---
LESLEYE Length of stay for Answers: 2 days current admission Acuity / Level of Answers: Yes Care: Did the patient have an inpatient admission? Comorbidities - select Answers: Diabetes (uncontrolled or all that apply controlled) # of Emergency department Answers: 1-2 visits in the last 6 months Social determinants Answers: Mental health diagnosis (anxiety, depression, pers onality disorders, etc.) Score: 10 Date Signed: 02/23/2018 11:26 AM Electronically Signed By:Yoanna Larsen RN
--- NOTE | 2018-02-23 11:26 | ASMTCMCOM ---
CM Note CM Note Notes: Pt discharging home w/support of , she will come to outpt infusion for IV abx through Tuesday. Appt scheduled at 1pm and MD Mendez notified. DC Plan: Independent Date Signed: 02/23/2018 11:25 AM Electronically Signed By:Yoanna Larsen RN
--- NOTE | 2018-02-23 12:08 | GDS ---
DISCHARGE SUMMARY: DISCHARGE DIAGNOSES: 1. Abdominal cellulitis with Gram stain showing strep intermedius. 2. Insulin-dependent diabetes type 1 with a hemoglobin A1c of 7.6. 3. Uncontrolled hypertension. CONSULTATION: Molina Mendez MD HISTORY: Briefly, Trang Lopez is a 62-year-old woman with a history of insulin-dependent diabetes. She recently changed to 10 mm metal needles for insulin pump and had one in her left lower abdomen a nd noted that it was more painful than usual. The area developed worsening erythema, so she subseque ntly changed her needle to a different site, but it still continued to have increased redness. She w as started empirically on vancomycin. Subsequently, was changed to ceftriaxone. She is markedly imp roved. She will come to [facility] for antibiotic infusions. HOSPITAL COURSE: 1. Abdominal wall abscess with abdominal cellulitis. This is in the setting of an insulin pump. Sh e is much improved. 2. Insulin-dependent diabetes. Her hemoglobin A1c is 7.6. I reviewed with her about this number, t hat this was elevated. She is aware. She will continue her insulin pump. 3. Uncontrolled hypertension. Her blood pressure has been high throughout her stay, except for a fe w normal. She said that this is from being in the hospital. She will follow up with Dr. Santo in [facility] outpatient setting. DISCHARGE CONDITION: Stable. Blood pressure is 147/78, respiratory rate is 18, pulse is 89, tempera ture is 36.8 Celsius. O2 saturations on room air are 94%. MEDICATIONS AT DISCHARGE: Please see the EMR. DISCHARGE INSTRUCTIONS: 1. To come to [facility] for intravenous infusions. 2. Return to the ER if she has worsening redness or swelling of her abdomen or develops fever or chi lls. /[id number]/MODL
== END 2018-02-23 11:07 | disposition home or self-care (01) | DRG 603 ==
LOC: OBSVTOIN 10:11 → F3E 11:18
PROVIDERS: ADMIT Internal Medicine; ATTEND Internal Medicine
PROC: 0H97XZZ Drainage of Abdomen Skin, External Approach (ICD-10-PCS; principal; 2018-02-20)
DX: L02.211 Cutaneous abscess of abdominal wall (principal); L03.311 Cellulitis of abdominal wall; B95.5 Unspecified streptococcus as the cause of diseases classified elsewhere; E10.9 Type 1 diabetes mellitus without complications; Z79.4 Long term (current) use of insulin; Z96.41 Presence of insulin pump (external) (internal); I10 Essential (primary) hypertension; Z87.891 Personal history of nicotine dependence; E21.3 Hyperparathyroidism, unspecified
CPT/HCPCS: 82435-PO; 82565-PO; 82947-PO; 84132-PO; 84295-PO; 84520-PO; 85014-PO; 96365; 96366; J0360; J0696; J3370

== ENCOUNTER → 2018-05-02 | Outpatient (CLI) | payer OTHER | LOC: BMCIMAGING 08:58 | PROVIDERS: ATTEND Internal Medicine | DX: Z12.31 Encounter for screening mammogram for malignant neoplasm of breast (principal) ==

== ENCOUNTER 2018-05-07 14:37 | Emergency (ER) | payer OTHER ==
--- NOTE | 2018-05-07 15:10 | EDPHY ---
General Time Seen by Provider: 05/07/18 14:54 Narrative: CHIEF COMPLAINT: Cut my lip HISTORY OF PRESENT ILLNESS: Patient presents with complaints of "I cut my lip."She reports working out in her garden just prior to arrival when she accidentally tripped and fell, striking herself in the face with the handle of a shovel. No loss of consciousness or headache. She sustained a laceration to the upper lip and this is only complaint. It bled heavily at that time but stopped with simple pressure. She has no dental pain or malocclusion. No neck pain. No difficulty opening or closing her mouth. She has no pain in the mandible. No other associated complaints or modifying factors. TIME OF INJURY: Just prior to arrival TETANUS STATUS: [place] to be up-to-date MEDICAL/SURGICAL/SOCIAL HISTORY: Primary care physician Dr. Jessica Santo. Lives independently with her spouse. REVIEW OF SYSTEMS: Ten systems reviewed and are negative unless otherwise noted in the HPI EXAMINATION: Vitals: Triage VS reviewed General Appearance: Alert, no distress Head: normocephalic, atraumatic no depression deformity. ENT: Upper lip laceration measuring 3 cm with partial thickness involvement of the vermilion border and the philtrum. There is no laceration to the mucosa. No facial laceration otherwise. Airway is widely patent. No trismus. Cardiovascular: Pulses normal throughout. Brisk cap refill Neurological: A&O, sensory symmetric, strength symmetric Skin: Warm and dry, no rash. Lip laceration as above. Extremities: Nontender, no pedal edema DIFFERENTIAL DIAGNOSES: Including but not limited to laceration, laceration complication, laceration foreign body, laceration with deep tissue injury MDM: 2:58 p.m. Complex lip laceration involving the philtrum, the vermilion border in the muscular the upper lip. There is no dental trauma. No mucosal laceration. No trismus or evidence of mandibular fracture. She feels that her tetanus is up-to -date and she will verify with primary care physician tomorrow and is declining Tdap here. I have anesthetize the wound. Proceed with irrigation closure. No indication for imaging. 3:45 p.m. After irrigation there was a 2nd laceration identified. This is to the right lateral upper lip. No involvement of the vermilion border. 0.5 cm in length with distraction of the wound borders and no foreign body. Complex lip laceration involving the vermilion border has been closed with excellent approximation of the wound borders, including alignment of the vermilion border. There are 2 layers of closure. We discussed wound care. We discussed ice and elevation. We discussed returning here for suture removal in 7 days. We discussed salt water rinses and signs of infection to watch for. She is comfortable this plan and discharged home stable condition. PROCEDURE: Laceration repair, 1. Consent: Verbal Location: Upper lip involving the vermilion border Length of repair: 3 cm with jagged wound borders Complexity: Complex Layer involvement: 2 layer Anesthesia: Local. 0.25% Marcaine with epinephrine, 5 mL Irrigation: Extensive Debridement: None Procedure description: Following good anesthesia, the wound was copiously irrigated. Wound bed was explored with a sterile glove, and there is no foreign body noted. 1st stitch was placed to align the vermilion border. Wound borders were approximated well with good hemostasis. Tolerated well without complication. Suture/Staple material: Subcutaneous layer: 5-0 Vicryl, 4 figure-eight sutures. Cutaneous layer: 6-0 Prolene, 4 simple ruptured sutures Wound care: Routine as discussed Suture/Staple removal: 7 Days PROCEDURE: Laceration repair, 2. Consent: Verbal Location: Right upper lip Length of repair: 0.5 cm Complexity: Simple Layer involvement: Single Anesthesia: Local as above Irrigation: Extensive Debridement: None Procedure description: Following good anesthesia, the wound was copiously irrigated. Wound bed was explored with a sterile glove, and there is no foreign body noted. Wound borders were approximated well with good hemostasis. Tolerated well without complication. Suture/Staple material: 6-0 Prolene, 1 simple interrupted sutures Wound care: Routine as discussed Suture/Staple removal:5-7 Days SUPERVISION: This patient was independently evaluated without direct involvement of or examination by the attending physician. ED Precautions: Worsening pain. Erythema, edema, cyanosis, pallor, paresthesia or anesthesia. - History Smoking Status: Former smoker - Objective Vital Signs: Initial Vital Signs Temperature (C) 98.1 F 05/07/18 14:40 Heart Rate 78 05/07/18 14:40 Respiratory Rate 18 05/07/18 14:40 Blood Pressure 170/90 H 05/07/18 14:40 O2 Sat (%) 97 05/07/18 14:40 O2 Delivery Mode Room Air Allergies/Adverse Reactions: cortisone [Cortisone] Allergy (Mild, Verified 02/20/18 08:42) BLISTERING, RED, SWELLING bacitracin [From Neosporin ([id number])] Allergy (Verified 05/07/18 14:39) neomycin [From Neosporin ([id number])] Allergy (Verified 05/07/18 14:39) polymyxin B [From Neosporin ([id number])] Allergy (Verified 05/07/18 14:39) Home Medications: Medication Instructions Recorded Insulin Pump, Patient Own 05/07/18 Departure - Departure Disposition: Home, Routine, Self-Care Clinical Impression: Laceration of vermilion border of upper lip Qualifiers: Encounter type: initial encounter Qualified Code(s): S01.511A - Laceration without foreign body of lip, initial encounter Blunt trauma of face Qualifiers: Encounter type: initial encounter Qualified Code(s): S09.93XA - Unspecified injury of face, initial encounter Condition: Good Instructions: Care For Your Stitches (ED), Facial Laceration (ED) Additional Instructions: 1. Salt water rinses 3 times daily 2. Keep the wound covered while showering for the next 3 days 3. Daily wound care as discussed 4. Return here for suture removal in 7 days 5. Return here for signs of infection as discussed including warmth, redness, fever, drainage from the site 6. return here for increasing pain surrounding the laceration 7. Do not submerge the wound in any water, hot tub, swimming pool until sutures removed Referrals: Jessica Santo MD [Primary Care Provider] - As per Instructions Physician,Emergency Dept, [Medical Doctor] - As per Instructions (Seven days for suture removal)
[2018-05-07 15:55] VITALS: BP 175/105
== END 2018-05-07 15:59 | disposition home or self-care (01) ==
PROC: 0CQ0XZZ Repair Upper Lip, External Approach (ICD-10-PCS; principal; 2018-05-07)
DX: S01.511A Laceration without foreign body of lip, initial encounter (principal); S09.90XA Unspecified injury of head, initial encounter; W19.XXXA Unspecified fall, initial encounter; Y92.9 Unspecified place or not applicable; Y93.9 Activity, unspecified; Y99.9 Unspecified external cause status

== ENCOUNTER → 2018-06-01 | Outpatient (CLI) | payer OTHER | LOC: BMCIMAGING 14:44 | PROVIDERS: ATTEND Podiatrist Foot & Ankle Surgery | DX: M25.571 Pain in right ankle and joints of right foot (principal) ==